=== PATIENT | male | born 1985 ===

== ENCOUNTER 2017-02-21 06:47 | Emergency (ER) | payer MEDICAID, OTHER ==
[2017-02-21 06:49] VITALS: BMI 34.2
[2017-02-21 06:55] VITALS: TEMP 98.4
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
[2017-02-21 07:56] LABS: ADD MANUAL DIFF? NO
[2017-02-21 08:03] LABS: BASO # 0.02 K/mm3 (0.0-2.0); BASO % 0.3 % (0.0-3.0); EOS # 0.2 (0.0-0.7); EOS % 3.3 % (1.5-5.0); GRAN % 66.9 % (50.0-68.0); HEMATOCRIT 44.6 % (42.0-52.0); LYMPH # 1.2 (1.2-3.4); LYMPH % 20.3 % (22.0-35.0); MEAN CELL VOLUME 93.3 fL (80.0-105.0); MEAN CORPUSCULAR HEMOGLOBIN 32.4 pg (25.0-35.0); MEAN CORPUSCULAR HGB CONC 34.8 g/dl (31.0-37.0); MEAN PLATELET VOLUME 10.5 fl (7.0-11.0); MONO # 0.6 (0.1-0.6); MONO % 9.2 % (1.0-6.0); PLATELET COUNT 233 10^3/uL (120.0-450.0); RED CELL DISTRIBUTION WIDTH 13.6 % (11.5-14.5); WHITE BLOOD COUNT 6.1 10^3/ul (4.5-11.0)
--- NOTE | 2017-02-21 08:03 | RAD ---
HISTORY: cough COMPARISON: No prior. FINDINGS: LUNGS: No active pulmonary disease. PLEURA: No significant pleural effusion identified, no pneumothorax apparent. CARDIOVASCULAR: Normal. OSSEOUS STRUCTURES: No significant abnormalities. VISUALIZED UPPER ABDOMEN: Normal. OTHER FINDINGS: None. IMPRESSION: No active disease. Specifically no infiltrate
[2017-02-21 08:10] LABS: INR 0.99 (0.93-1.08)
[2017-02-21 08:14] LABS: ALB/GLOB RATIO 1.2 (1.1-1.8); ALKALINE PHOSPHATASE 138 U/L (38-133); ALT/SGPT 70 U/L (7-56); AST/SGOT 51 U/L (15-59); BILIRUBIN,TOTAL 1.2 mg/dL (0.2-1.3); BLOOD UREA NITROGEN 10 mg/dL (7-21); CALCIUM 9.6 mg/dL (8.4-10.5); CARBON DIOXIDE 30 mmol/L (21-33); CHLORIDE 100 mmol/L (98-107); GFR AFRICAN-AMERICAN > 60; GLUCOSE,RANDOM 107 mg/dL (70-110); POTASSIUM 4.4 mmol/L (3.6-5.0); SODIUM 140 mmol/L (132-148); TOTAL PROTEIN 8.4 g/dL (5.8-8.3)
[2017-02-21 08:25] LABS: TROPONIN I 0.02 ng/mL
[2017-02-21 09:23] VITALS: BP 125/67; PULSE 67; RESP 18; O2SAT 99
--- NOTE | 2017-02-22 10:52 | CARD ---
APPROVED REPORT EKG Measurement Heart [id number] <Conclusion> Normal sinus rhythm [id number] Abnormal ECG
== END 2017-02-21 09:25 | disposition home or self-care (01) ==
LOC: ED 06:47
DX: Z04.1 Encounter for examination and observation following transport accident (principal); V49.59XA Passenger injured in collision with other motor vehicles in traffic accident, initial encounter; Y92.410 Unspecified street and highway as the place of occurrence of the external cause
CPT/HCPCS: 71010; 80053; 82550; 82553; 83615; 84484; 85025; 85610; 85730; 93005; 96374; 99284; J1885

== ENCOUNTER 2017-07-23 20:51 | Emergency (ER) | payer MEDICAID, OTHER ==
[2017-07-23 21:37] VITALS: TEMP 98.1; BMI 32.5
[2017-07-23] MEDS ORDERED: Naproxen 550 mg Tab PO STA (23:02)
--- NOTE | 2017-07-23 23:02 | ED PDOC ---
Arrival/HPI - General Chief Complaint: Finger,Hand,&Wrist Time Seen by Provider: 07/23/17 22:24 Historian: Patient - History of Present Illness Narrative History of Present Illness (Text): 07/23/17 23:51 Luigi Garcia is a 32 vince old male who presents to the emergency department complaining of pain to bilateral hands for past week. Patient also reports of numbness to bilateral 1st, 2nd and 3rd digits. 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 Denies any weakness to extremity. Denies fever, chills, headache, dizziness, chest pain, shortness of breath or any other complaints at this time. Past Medical History - Provider Review Nursing Documentation Reviewed: Yes - Psychiatric Hx Substance Use: No Family/Social History - Physician Review Nursing Documentation Reviewed: Yes Family/Social History: No Known Family HX Smoking Status: Light Smoker < 10 Cigarettes Daily Hx Alcohol Use: Yes Frequency of alcohol use: Socially Hx Substance Use: No Allergies/Home Meds Allergies/Adverse Reactions: Allergies No Known Allergies Allergy (Verified 02/21/17 06:49) Review of Systems - Physician Review All systems were reviewed & negative as marked: Yes - Review of Systems Constitutional: Normal. absent: Fatigue, Fevers Respiratory: Normal. absent: SOB, Cough Cardiovascular: Normal. absent: Chest Pain, Palpitations Gastrointestinal: Normal. absent: Abdominal Pain, Diarrhea, Nausea, Vomiting Musculoskeletal: Other (bilateral hand pain with 1st, 2nd and 3rd digit numbness ) Physical Exam Vital Signs Reviewed: Yes Vital Signs Temp Pulse Resp BP Pulse Ox 07/23/17 23:32 76 16 112/73 99 07/23/17 22:24 89 14 127/58 L 95 07/23/17 21:35 98.1 F 96 H 16 146/75 96 Temperature: Afebrile Blood Pressure: Normal Pulse: Regular Respiratory Rate: Normal Appearance: Positive for: Well-Appearing, Non-Toxic, Comfortable Pain Distress: None Mental Status: Positive for: Alert and Oriented X 3 - Systems Exam Head: Present: Atraumatic, Normocephalic Pupils: Present: PERRL Conjunctiva: Present: Normal Mouth: Present: Moist Mucous Membranes Respiratory/Chest: Present: Clear to Auscultation, Good Air Exchange. No: Respiratory Distress, Accessory Muscle Use Cardiovascular: Present: Regular Rate and Rhythm, Normal S1, S2. No: Murmurs Abdomen: Present: Normal Bowel Sounds. No: Tenderness, Distention, Peritoneal Signs Upper Extremity: Present: Normal ROM, NORMAL PULSES, Tenderness (mild tenderness to wrist. pain reproducible with flexion/extension of wrist. ), Neurovascularly Intact (however +decreased sensation to b/l digits 1,2,3 ). No : Cyanosis, Edema, Swelling, Erythema Lower Extremity: Present: Normal Inspection, NORMAL PULSES. No: Edema, CALF TENDERNESS Neurological: Present: GCS=15, CN II-XII Intact, Speech Normal Skin: Present: Warm, Dry, Normal Color. No: Rashes Psychiatric: Present: Alert, Oriented x 3, Normal Insight, Normal Concentration Medical Decision Making ED Course and Treatment: 07/23/17 23:59 Impression: A 32 year old male who presents to the emergency department complaining of pain to b/l hands and numbness to 1st,2nd and 3rd digits. Plan: -- Naproxen -- Reassess and disposition Progress Notes: Patient notified of likely diagnosis of carpal tunnel syndrome. Cock up splint applied to both wrist, instructed to rest both wrist, ice and take NSAIDs as prescribed for pain. On reevaluation, patient states symptoms have resolved completely. States he is comfortable with the plan to be discharged home. Advised to follow up with ortho referral within few days and present back to emergency department for new/ worsening symptoms. - Medication Orders Current Medication Orders: Discontinued Medications Naproxen (Anaprox Ds) 550 mg PO ONCE STA Stop: 07/23/17 23:03 Last Admin: 07/23/17 23:27 Dose: 550 mg - PA / COMPUTER ENGINEER / Resident Statement MD/DO has reviewed & agrees with the documentation as recorded. Disposition/Present on Arrival - Present on Arrival Any Indicators Present on Arrival: No History of DVT/PE: No History of Uncontrolled Diabetes: No Urinary Catheter: No History of Decub. Ulcer: No History Surgical Site Infection Following: None - Disposition Have Diagnosis and Disposition been Completed?: Yes Diagnosis: Carpal tunnel syndrome, bilateral Disposition: HOME/ ROUTINE Disposition Time: 22:15 Patient Plan: Discharge Condition: STABLE Discharge Instructions (ExitCare): Carpal Tunnel Syndrome (ED) Print Language: DIVEHI Additional Instructions: Thank you for letting us take care of you today. You were treated for carpal tunnel syndrome. The emergency medical care you received today was directed at your acute symptoms. If you were prescribed any medication, please fill it and take as directed. It may take several days for your symptoms to resolve. Return to the Emergency Department if your symptoms worsen, do not improve, or if you have any other problems. Please contact your doctor in 2 days for re-evaluation and follow up / or call one of the physicians/clinics you have been referred to that are listed on the Patient Visit Information form that is included in your discharge packet. Bring any paperwork you were given at discharge with you along with any medications you are taking to your follow up visit. Our treatment cannot replace ongoing medical care by a primary care provider (PCP) outside of the emergency department. Thank you for allowing the [facility] team to be part of your care today. Prescriptions: Meloxicam [Mobic] 15 mg PO DAILY PRN #30 tab PRN Reason: Pain, Moderate (4-7) Referrals: PCP,NO [Primary Care Provider] - Follow up with primary Armen Leung III, MD [Medical Doctor] - Follow up with primary Forms: [employer]CMiner (Albanian), WORK NOTE
[2017-07-23 23:33] VITALS: BP 112/73; PULSE 76; RESP 16; O2SAT 99
== END 2017-07-23 23:33 | disposition home or self-care (01) ==
LOC: ED 20:51
DX: G56.03 Carpal tunnel syndrome, bilateral upper limbs (principal)